=== PATIENT | male | born 1975 | race Caucasian/White ===

== ENCOUNTER → 2017-05-14 | Outpatient (CLI) | payer BC ==
--- NOTE | 2017-05-14 13:41 | DIAGNOSTIC IMAGING REPORT ---
SCROTAL ULTRASOUND CLINICAL HISTORY: Epididymitis. COMPARISON STUDY: None. TECHNIQUE: Grayscale and color and duplex Doppler sonography of the scrotum was performed. FINDINGS: The right testis measures 4.4 x 3 x 2.4 cm and the left measures 4.7 x 2.7 x 2.2 cm. Color flow within each testis is symmetric. There is no testicular mass. There is no sonographic evidence of epididymitis. A 2 mm calcification along the left tunica albuginea is of no clinical significance. A moderate sized left-sided varicocele is noted. IMPRESSION: 1. Normal sonographic appearance of the testes. 2. No evidence of epididymitis. 3. Moderate-sized left varicocele. Electronically signed by: Roberto Leiva M.D. 05/14/2017 1:39 PM Dictated Date/Time: 05/14/2017 1:38 PM
== END | disposition home or self-care (01) ==
LOC: C.ULTR 12:43
PROVIDERS: ATTEND Urology
DX: N45.1 Epididymitis (principal)

== ENCOUNTER → 2017-09-01 | Outpatient (CLI) | payer BC ==
[~2017-09-01] MED LIST: BACI500O11 TOP; CEPH500C2 PO; DOCU-94 PO; MULT-506 PO; OXYC7.5T65 PO
[2017-09-01 15:46] LABS: BASO % 0.4 %; BASO ABS # 0.03 K/uL (0-0.2); EOS % 1.5 %; EOS ABS # 0.11 K/uL (0-0.5); HEMATOCRIT 46.8 % (42-52); HEMOGLOBIN 16.4 g/dL (14.0-18.0); IG# 0.01 K/uL (0.00-0.02); LYMPH % 28.7 %; LYMPH ABS # 2.11 K/uL (1.2-3.4); MEAN CELL VOLUME 86.3 fL (80-100); MEAN CORPUSCULAR HEMOGLOBIN 30.3 pg (25-34); MEAN PLATELET VOLUME 9.6 fL (7.4-10.4); MONO ABS # 0.66 K/uL (0.11-0.59); NEUT % 60.3 %; NEUT ABS # 4.44 K/uL (1.4-6.5); PLATELET COUNT 204 K/uL (130-400); RED CELL DISTRIBUTION WIDTH CV 12.7 % (11.5-14.5); RED CELL DISTRIBUTION WIDTH SD 39.9 fL (36.4-46.3); WHITE BLOOD COUNT 7.36 K/uL (4.8-10.8)
--- NOTE | 2017-09-01 16:01 | DIAGNOSTIC IMAGING REPORT ---
CHEST 2 VIEWS ROUTINE CLINICAL HISTORY: Preoperative evaluation. COMPARISON STUDY: No previous studies for comparison. FINDINGS: Lung volumes are normal. No pneumothorax or pleural effusion is present. No consolidation is identified. There is no evidence for pulmonary edema. Cardiomediastinal silhouette is unremarkable. IMPRESSION: No acute cardiopulmonary findings. Electronically signed by: Roberto Leiva M.D. 09/01/2017 3:59 PM Dictated Date/Time: 09/01/2017 3:58 PM
[2017-09-01 16:08] LABS: BLOOD UREA NITROGEN 12 mg/dl (7-18); CALCIUM 9.8 mg/dl (8.5-10.1); CARBON DIOXIDE 32 mmol/L (21-32); CREATININE 0.89 mg/dl (0.60-1.40); GLUCOSE 89 mg/dl (70-99); POTASSIUM 3.5 mmol/L (3.5-5.1); SODIUM 136 mmol/L (136-145)
== END | disposition home or self-care (01) ==
LOC: C.CPL 15:15
PROVIDERS: ATTEND Urology
DX: I86.1 Scrotal varices (principal); Z01.811 Encounter for preprocedural respiratory examination; Z01.810 Encounter for preprocedural cardiovascular examination

== ENCOUNTER 2017-09-09 08:07 | Day surgery (SDC) | payer BC ==
[2017-09-08 08:12] VITALS: BMI 25.0
[~2017-09-09] VITALS: Ht 190.5 cm; Wt 90.9 kg
[~2017-09-09 08:07] MED LIST changes: -BACI500O11 TOP; +CEFAZOLIN 2000MG IV PUSH 10 ML IV SCH; -CEPH500C2 PO; -DOCU-94 PO; +LACTATED RINGER'S 1000ML 1,000 ML IV SCH; -OXYC7.5T65 PO; +PATIENT'S ALLERGY INFO NEEDS ENTERED SCH
[2017-09-09 08:27] VITALS: BP 129/79; PULSE 65; TEMP 36.7; O2SAT 98; Ht 190.5 cm; Wt 90.9 kg
[2017-09-09] MEDS ORDERED: FENTANYL CITRATE INJ 50 MCG/1 ML 2 ML VIAL ONE ×2 (09:17→10:50)
[2017-09-09] MEDS ORDERED: MIDAZOLAM HCL 1 MG/ML 2ML VIAL ONE (09:17)
[2017-09-09] MEDS ORDERED: LIDOCAINE HCL 1% 20 ML VIAL ONE (09:36)
[2017-09-09] MEDS ORDERED: BACITRACIN OINT 15 GM TUBE ONE (09:36)
--- NOTE | 2017-09-09 10:24 | History & Physical Bridge Note ---
H&P Re-Evaluation Bridge Note: I have examined the patient, reviewed the History & Physical and in the interval since the performance of the History & Physical I have noted the following changes of clinical significance: No changes noted
[2017-09-09] MEDS ORDERED: LIDOCAINE HCL 2% 2 ML VIAL (20MG/ML) ONE (10:50)
[2017-09-09] MEDS ORDERED: PROPOFOL IV EMULSION 10 MG/ML 20 ML VIAL IV ONE (10:50)
[2017-09-09] MEDS ORDERED: ONDANSETRON INJ 2 MG/ML 2 ML VIAL ONE (10:50)
[2017-09-09] MEDS ORDERED: KETOROLAC TROMETHAMINE 30 MG/ML VIAL ONE (12:12)
--- NOTE | 2017-09-09 12:26 | [facility] Post Operative Brief Note ---
Immediate Operative Summary Operative Date Sep 09, 2017. Pre-Operative Diagnosis Left varicocele, Testicular pain, Desire for Sterilization Post-Operative Diagnosis Left varicocele, Testicular pain, Desire for Sterilization Procedure(s) Performed Left Inguinal Variococelectomy; Vasectomy Under Anesthesia Surgeon Dr. Bandar Dove [facility] [employer] Surgeon(s) NONE Estimated Blood Loss 10 ml Findings Testicular artery spared. Specimens A: Right Vas B: Left Vas
[2017-09-09] MEDS ORDERED: CEPH500C2 PO (12:41)
[2017-09-09] MEDS ORDERED: DOCU-94 PO (12:41)
[2017-09-09] MEDS ORDERED: OXYC7.5T65 PO (12:41)
--- NOTE | 2017-09-09 12:43 | Discharge Instructions ---
Discharge Instructions Date of Service Sep 09, 2017. Admission Reason for Admission: Varicocele, Desires Sterilization Discharge Discharge Diagnosis / Problem: Left varicocoele, undesired fertility s/p bl vasectomy, LI varicocelectomy Discharge Goals Goal(s): Decrease discomfort, Improve function, Therapeutic intervention Activity Recommendations Activity Limitations: as noted below Lifting Limitations: no more than 25 pounds (x 2 weeks) Exercise/Sports Limitations: rest today, gradually increase as tolerated (x 2 weeks) May Resume Sexual Activity: after follow-up appointment Shower/Bathe: tomorrow (no tub bath) . Instructions / Follow-Up Instructions / Follow-Up Scrotal support and fluffs x 48 hours. Ice packs x 48 hours then as needed for pain. Bacitracin ointment to scrotal incision. Current Hospital Diet Patient's current hospital diet: Discharge Diet Recommended Diet: Regular Diet Procedures Procedures Performed: Left Inguinal Variococelectomy; Vasectomy Under Anesthesia Pending Studies Studies pending at discharge: yes List of pending studies: Pathology report Medical Emergencies . Who to Call and When: Medical Emergencies: If at any time you feel your situation is an emergency, please call 911 immediately. . Non-Emergent Contact Non-Emergency issues call your: Urologist Call Non-Emergent contact if: you have a fever, temperature is above 101, your pain is not controlled, your pain is worsening, your pain is unusual for you, your pain is concerning you, wound has increased drainage, wound has increased redness, wound has increased pain, you have any medication questions . . "Provider Documentation" section prepared by Luis Dove. . VTE Core Measure Inpt VTE Proph given/why not?: SCD's [place] Drug Monitoring Program Search Results: patient reviewed within database, no issues identified
[2017-09-09] MEDS ORDERED: BACI500O11 TOP (12:44)
[2017-09-09] MEDS ORDERED: OXYCODONE/ACETAMINOPHEN 5-325 TAB PO PRN ×2 (12:45)
--- NOTE | 2017-09-09 12:46 | [facility] Operative Report ---
Operative Report Operative Date Sep 09, 2017. Pre-Operative Diagnosis Left varicocele, Testicular pain, Desire for Sterilization Post-Operative Diagnosis Left varicocele, Testicular pain, Desire for Sterilization Procedure(s) Performed Left Inguinal Variococelectomy and Vasectomy; Bilateral Vasectomy Under Anesthesia Surgeon Dr. 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 Specimens A: Right Vas B: Left Vas Drains NA Anesthesia GALMA + local Complication(s) None Disposition Recovery Room / PACU Indications Patient is a 42-year-old male, previously seen by my partner Dr. Amaya, who is here today for a bilateral vasectomy and left inguinal varicocelectomy. Please see H&P for further details. Intravenous Ancef was provided for preoperative antibiotic coverage and SCDs used for DVT prophylaxis. Patient has a significant left varicocele as well as undesired fertility. Informed consent reviewed with the patient and prior to OR today. Description of Procedure Patient was properly identified and brought into the operative suite after identification of appropriate consent on the chart. General anesthesia with laryngeal mask was initiated and patient was prepped and draped in the standard fashion for this procedure. Full timeout procedure was followed. Loupe magnification was used for the entire procedure. Right-sided vas was palpated within the scrotum and a small skin incision was made. This was dissected free and easily grasped with a ring forceps and delivered through the small incision. Local sheath block was made in the vas was isolated, clamped on either side and an approximately 1 cm segment was excised and sent for pathologic analysis. Both ends were cauterized and tied with 2-0 Vicryl ties. These were returned to the scrotum with excellent hemostasis and skin was closed using a 4-0 chromic suture. Attention was then turned to the left inguinal canal or a small skin incision was made and dissected down through the subcutaneous fat to the fascia of the external oblique. This was opened using a 15 blade and the ilioinguinal nerve was identified and removed from the surgical field. Cord was circumscribed and isolated using a quarter-inch [place] drain. Proximal cord block using plain local anesthesia was performed. The floor of the inguinal canal was inspected and noted to have some mild weakness without srinivas hernia. No residual vessels or structures were present within the canal. Hand-held Doppler ultrasound was used frequently throughout the case to ensure the location of the testicular artery was known that this was preserved throughout the case. Several large varicose veins of the pampiniform plexus were identified, isolated, double tied with 2-0 Vicryl and divided. Cremasteric fibers and lymphatics were also divided using Bovie cautery 2-0 Vicryl ties as necessary. Testicular artery and the small vessels attendant were removed from the surgical field by placing on the other side of the [place] drain. Again, frequent Doppler ultrasound was used for identification. Seen that a vasectomy was planned a single small vein of the gonadal plexus was left intact. The vas was identified and the vessels the vas were dissected free of the vas without evidence of injury. A 1 cm segment was again excised with the tips being cauterized and ligated using 2-0 Vicryl suture. The vessels of the vas were felt to be intact after completion of the case. The remaining structures of the cord were dissected and divided as planned. A small lipoma of the cord was identified and left alone. This left at the end of the case the testicular artery, a single gonadal vein branch and the vessels of the vas as the sole inhabitants of the inguinal canal. Generous wound irrigation was carried out the ilioinguinal nerve was returned to its normal anatomic location. Fashion was closed using a running 0 Vicryl suture on a UR 5 needle taking care to avoid entrapping the nerve. External ring had been left intact throughout the case. Additional local anesthesia was provided at the level of the skin. Subcutaneous tissues were closed using 3-0 Vicryl suture and a 4-0 Monocryl closure was performed in a subcuticular fashion level of the skin. Dermabond dressing was placed on the inguinal incision followed by a scrotal support and fluffs with bacitracin on the scrotal incision. Anesthesia was reversed patient was transferred to the recovery room in stable condition. Follow-up care: Patient will be discharged home with a prescription for Colace, bacitracin, pain medication and a short course of antibiotics. Scrotal support and ice packs in the recovery room in for 48 hours postoperatively. Activity limitations are documented and postoperative appointment is confirmed. Patient is instructed to contact our service should he note any fevers, chills, nausea, vomiting or other difficulties in the postoperative period. I attest to the content of the Intraoperative Record and any orders documented therein. Any exceptions are noted below.
[2017-09-09] MEDS ORDERED: FENTANYL CITRATE INJ 50 MCG/1 ML 2 ML VIAL IV PRN (13:00)
[2017-09-09] MEDS ORDERED: HYDROmorphone INJ 0.5 MG/0.5 ML SYR IV PRN (13:00)
[2017-09-09] MEDS ORDERED: EpHEDrine SULFATE INJ 50 MG/ML AMP IV PRN (13:00)
[2017-09-09] MEDS ORDERED: ATROPINE SULFATE 0.1 MG/ML 5ML SYR IV PRN (13:00)
[2017-09-09] MEDS ORDERED: ONDANSETRON INJ 2 MG/ML 2 ML VIAL IV PRN (13:00)
[2017-09-09 13:15] VITALS: BP 115/74; PULSE 63; TEMP 36.4; O2SAT 98
[2017-09-09 13:45] VITALS: BP 129/78; PULSE 82; TEMP 36.7; O2SAT 100
[2017-09-09] MEDS ORDERED: OXYCODONE/ACETAMINOPHEN 5-325 TAB ONE ×2 (13:53→14:37)
[2017-09-09 14:20] VITALS: BP 116/76; PULSE 80; TEMP 36.5; O2SAT 99
[2017-09-09 15:15] VITALS: BP 121/71; PULSE 72; TEMP 36.7; O2SAT 97
--- NOTE | 2017-09-09 15:48 | Anesthesiology Progress Note ---
Anesthesia Post Op Note Date & Time Sep 09, 2017 at 15:48 Vital Signs Pain Intensity: 7.0 Vital Signs Past 12 Hours Date Time Temp Pulse Resp B/P (MAP) Pulse Ox O2 Delivery O2 Flow Rate FiO2 09/09/17 14:20 36.5 80 18 116/76 99 Room Air 09/09/17 13:45 36.7 82 18 129/78 100 Room Air 09/09/17 13:15 36.4 63 16 115/74 98 Room Air 09/09/17 13:08 36.5 09/09/17 13:06 71 16 09/09/17 13:06 70 16 121/81 100 09/09/17 13:01 79 14 09/09/17 13:01 80 14 99 09/09/17 13:00 122/88 09/09/17 12:57 76 17 09/09/17 12:57 76 17 99 09/09/17 12:56 122/85 09/09/17 12:52 74 14 100 09/09/17 12:52 74 14 09/09/17 12:51 128/78 09/09/17 12:47 80 15 09/09/17 12:47 75 15 100 09/09/17 12:46 109/69 09/09/17 12:42 63 16 100 09/09/17 12:42 64 16 09/09/17 12:41 110/70 09/09/17 12:37 68 17 100 09/09/17 12:37 68 17 09/09/17 12:36 125/71 09/09/17 12:32 78 16 09/09/17 12:32 78 16 117/66 99 09/09/17 12:32 36.8 80 12 117/86 98 Oxymask 10 09/09/17 08:27 36.7 65 16 129/79 (96) 98 Room Air Notes Mental Status: alert / awake / arousable, participated in evaluation Pt Amnestic to Procedure: Yes Nausea / Vomiting: adequately controlled Pain: adequately controlled Airway Patency, RR, SpO2: stable & adequate BP & HR: stable & adequate Hydration State: stable & adequate Anesthetic Complications: no major complications apparent
== END 2017-09-09 15:35 | disposition home or self-care (01) ==
LOC: C.ACU 08:07
PROVIDERS: ATTEND Urology
DX: I86.1 Scrotal varices (principal); Z30.2 Encounter for sterilization